=== PATIENT | female | born 1970 | race Caucasian/White ===

== ENCOUNTER → 2020-06-04 | Outpatient (CLI) | payer BC ==
[~2020-06-04] MED LIST: LIOT5TAB4 PO; LISI10TA2 PO; [UNRECOGNIZED DRUG - CODE] PO
== END | disposition home or self-care (01) ==
LOC: LAB 13:53
PROVIDERS: ATTEND Internal Medicine Gastroenterology
DX: Z01.818 Encounter for other preprocedural examination (principal); Z11.59 Encounter for screening for other viral diseases; R19.7 Diarrhea, unspecified; R14.0 Abdominal distension (gaseous)
CPT/HCPCS: U0003-CS

== ENCOUNTER → 2020-06-07 | Day surgery (SDC) | payer BC ==
[~2020-06-07] MED LIST changes: +IV RINGERS,LACTATED 1000ML 1,000 ML IV SCH; +LIDOCAINE 2% PF 5 ML VIAL. ONE; +PROPOFOL 10 MG/ML (20ML) VIAL. IV ONE
[2020-06-07 10:23] VITALS: BP 143/88
--- NOTE | 2020-06-07 10:27 | PREOP HP ---
DATE OF SERVICE: 06/07/2020 DATE OF PROCEDURE: 06/07/2020 REQUESTING PHYSICIAN: Dr. Norman Asencio. PRIMARY CARE PHYSICIAN: Dr. Norman Asencio. REASON FOR PROCEDURE: Bloating, diarrhea, colorectal cancer screening. HISTORY OF PRESENT ILLNESS: This is a 49-year-old female who presents for bloating, diarrhea, and colorectal cancer screening. She reports that she has had some bleeding as well as diarrhea and bloating. She is to undergo upper and lower endoscopy for further evaluation. The risks and benefits including bleeding, perforation, non-diagnosis and sedation were explained and she has agreed to proceed. PAST MEDICAL HISTORY: Thyroid cancer, status post thyroidectomy. FAMILY MEDICAL HISTORY: No colon cancer. SOCIAL HISTORY: Occasional alcohol use, but denies tobacco or IV drug abuse. REVIEW OF SYSTEMS: A 13-point review of systems was done. It is positive as per HPI and otherwise negative. PHYSICAL EXAMINATION: VITAL SIGNS: She is afebrile and her vital signs are stable. GENERAL: She is a well-developed, well-nourished female, in no apparent distress. HEENT: Oropharynx is clear. CARDIOVASCULAR: S1, S2. LUNGS: Clear. ABDOMEN: Normoactive bowel sounds, soft, nontender, nondistended. EXTREMITIES: No edema. NEUROLOGIC: Awake, alert and oriented x 3. ASSESSMENT AND PLAN: 1. Bloating. 2. Diarrhea. 3. Colorectal cancer screening. The risks and benefits of the procedure including bleeding, perforation, non-diagnosis and sedation were explained and she has agreed to proceed. GARRY ALVAREZ MD DR: JANINA/calvin JOB#: [id number] / [id number]
--- NOTE | 2020-06-12 14:07 | PATHOLOGY ---
[facility] Accession Number: [id number] . 01 Material submitted: . PART A: small bowel - SMALL BOWEL BX PART B: stomach - ANTRUM AND BODY BX PART C: esophagus - DISTAL ESOPHAGEAL BX. Modifiers: distal PART D: ileum - TERMINAL ILEUM BX PART E: colon - LEFT COLON BX. Modifiers: left PART F: sigmoid colon - SIGMOID COLON POLYP BX . 01 Clinical history: . BLOATING, DIARRHEA, SCREENING . 02 Diagnosis: A. Small bowel endoscopic biopsy: - Duodenal mucosa without significant pathologic alteration. . B. Stomach "antrum and body", endoscopic biopsy: - Gastric antral and body mucosa with features of mild, chronic nonspecific gastritis. - Negative for active inflammation, intestinal metaplasia, dysplasia, and malignancy. - NEGATIVE for Helicobacter pylori. . C. Esophagus "distal", endoscopic biopsy: - Esophageal squamous and gastric cardia mucosa with features of reflux esophagitis. - Negative for intestinal metaplasia, dysplasia, and malignancy. . D. Small and large bowel " terminal ileum", endoscopic biopsy: - Ileal mucosa without significant pathologic alteration. - Large bowel mucosa without significant pathologic alteration. . E. Large bowel "left colon", endoscopic biopsy: - Large bowel mucosa without significant pathologic alteration. . F. Large bowel "sigmoid colon polyp", endoscopic biopsy: - Hyperplastic polyp; negative for dysplasia and malignancy. (MLK:[facility] 06/11/2020) [facility] [place] 06/12/2020 1321 Local . 02 Electronically signed: . Lm Dickinson MD, Pathologist NPI- [id number] . 01 Gross description: . A. The specimen is received in formalin, labeled "Jennifer Williamson, small bowel biopsy". Received are two segments of pale collins soft tissue ranging in size from 0.4 to 0.5 cm in maximum dimensions. The specimen is submitted entirely in cassette A1. . B. The specimen is received in formalin, labeled "Jennifer Williamson, antrum and body biopsy". Received are three segments of pale collins soft tissue ranging in size from 0.3 to 0.4 cm in maximum dimensions. The specimen is submitted entirely in cassette B1. . C. The specimen is received in formalin, labeled "Jennifer Williamson, distal esophageal biopsy". Received are three segments of pale collins soft tissue ranging in size from 0.2 to 0.3 cm in maximum dimensions. The specimen is submitted entirely in cassette C1. . D. The specimen is received in formalin, labeled "Jennifer Williamson, terminal ileum biopsy". Received are seven segments of pale collins soft tissue ranging in size from 0.3 to 0.7 cm in maximum dimensions. The specimen is submitted entirely in cassette D1. . E. The specimen is received in formalin, labeled "Jennifer Williamson, left colon biopsy". Received are two segments of pale collins soft tissue ranging in size from 0.3 to 0.4 cm in maximum dimensions. The specimen is submitted entirely in cassette E1. . F. The specimen is received in formalin, labeled "Jennifer Williamson, sigmoid colon polyp biopsy". Received is a segment of pale collins soft tissue measuring 0.4 cm in maximum dimensions. The specimen is submitted entirely in cassette F1. ([facility]; 06/08/2020) QA/QA 06/08/2020 1021 Local . 02 Microscopic: . Immunhistochemical stain results (block B1): - Helicobacter pylori - Negative for organisms. . (MLK:marsha; 06/11/2020) . 02 Pathologist provided ICD-10: K29.50, K63.5, R14.0, R19.7, Z12.11 . 02 CPT . 862381, 960357, 649147, 319927, 369611, 132624, [id number] Specimen Comment: A courtesy copy of this report has been sent to [phone], [phone] Specimen Comment: [id number] Specimen Comment: Report sent to / DR HANNON Performed at: [address], [place], [place] [id number] MD Rickey Trinidad MD Phone: [phone] Performed at: [address] [id number] MD Drew Mccoy MD Phone: [phone]
== END | disposition home or self-care (01) ==
LOC: ENDOS 07:49 → EDUNIT# 09:00
PROVIDERS: ATTEND Internal Medicine Gastroenterology
DX: R19.7 Diarrhea, unspecified (principal); D12.5 Benign neoplasm of sigmoid colon; K29.70 Gastritis, unspecified, without bleeding; R14.0 Abdominal distension (gaseous); K21.0 Gastro-esophageal reflux disease with esophagitis; Z85.89 Personal history of malignant neoplasm of other organs and systems; Z72.89 Other problems related to lifestyle; Z88.5 Allergy status to narcotic agent; Z79.899 Other long term (current) drug therapy
CPT/HCPCS: 43239; 45380; J2704; 88305; 88342